=== PATIENT | female | born 1965 | race Caucasian/White ===

== ENCOUNTER → 2024-03-07 06:19 | Day surgery (SDC) | payer OTHER, SELFPAY | LOC: GI 06:19 | PROVIDERS: ATTENDING PHYSICIAN Internal Medicine Gastroenterology | DX: Z12.11 Encounter for screening for malignant neoplasm of colon (principal); K57.30 Diverticulosis of large intestine without perforation or abscess without bleeding; K64.0 First degree hemorrhoids; K55.20 Angiodysplasia of colon without hemorrhage; K63.89 Other specified diseases of intestine; D12.3 Benign neoplasm of transverse colon; K63.5 Polyp of colon; Z86.0100 Personal history of colon polyps, unspecified; Z80.0 Family history of malignant neoplasm of digestive organs | CPT/HCPCS: 45385; 45380; 88305 ==

== ENCOUNTER → 2024-05-23 15:37 | Outpatient (REF) | payer OTHER, SELFPAY | LOC: HWWDC 15:37 | PROVIDERS: ATTENDING PHYSICIAN Nurse Practitioner Adult Health; FAMILY PHYSICIAN Family Medicine | DX: Z12.31 Encounter for screening mammogram for malignant neoplasm of breast (principal) | CPT/HCPCS: 77063; 77067 ==